=== PATIENT | female | born 1980 | race African-American/Black ===

== ENCOUNTER 2017-02-07 15:06 | Emergency (ER) | payer OTHER ==
[~2017-02-07] VITALS: Ht 152.4 cm; Wt 100.0 kg
[2017-02-07] MEDS ORDERED: ONDANSETRON 4MG ODT PO STA (16:54)
[2017-02-07 17:20] LABS: CHLORIDE 101 mEq/L (98-107)
[2017-02-07 17:24] LABS: CARBON DIOXIDE 26 mEq/L (21-32)
[2017-02-07 17:26] LABS: BASOPHILS % 0.9 % (0.0-2.0); HEMATOCRIT. 38.9 % (36.0-48.0); HEMOGLOBIN. 13.1 g/dL (12.0-16.0); LYMPHOCYTES % 29.6 % (20.0-50.0); MEAN CORPUSCULAR HEMOGLOBIN 31.1 pg (28.0-32.0); MEAN CORPUSCULAR VOLUME 92.5 fL (81.0-99.0); MEAN PLATELET VOLUME 9.1 fl (7.4-10.4); MONOCYTES % 8.3 % (2.0-8.0); NEUTROPHILS % 60.2 % (40.0-76.0); PLATELET 189 x1000/uL (130-400); RED BLOOD CELL COUNT 4.21 mill/uL (4.2-5.4); RED CELL DISTRIBUTION WIDTH 14.3 % (11.6-14.6)
[2017-02-07] MEDS ORDERED: SODIUM CHLORIDE 0.9% 1,000 ML IV ONE (17:30)
[2017-02-07 17:38] LABS: HCG SCREEN POSITIVE
[2017-02-07 18:00] LABS: CLARITY URINE CLOUDY (CLEAR); COLOR URINE YELLOW (YELLOW); GLUCOSE URINE NEGATIVE (NEGATIVE); KETONES URINE 4+ (NEGATIVE); LEUKOCYTE ESTERASE URINE TRACE (NEGATIVE); NITRITE URINE NEGATIVE (NEGATIVE); OCCULT BLOOD URINE TRACE (NEGATIVE); PROTEIN URINE TRACE (NEGATIVE)
[2017-02-07 21:41] VITALS: BP 119/71
== END 2017-02-07 22:18 | disposition home or self-care (01) ==
LOC: ER 17:14
DX: O26.891 Other specified pregnancy related conditions, first trimester (principal); R11.2 Nausea with vomiting, unspecified; O99.331 Smoking (tobacco) complicating pregnancy, first trimester; Z3A.08 8 weeks gestation of pregnancy
CPT/HCPCS: 36415; 76801; 80053; 81001; 83690; 84702; 84703; 85025; 96360; 96361; 99285; J7030; Q0162; Z7610

== ENCOUNTER 2023-10-04 22:05 | Emergency (ER) | payer OTHER ==
[~2023-10-04] VITALS: Ht 154.9 cm; Wt 91.0 kg
[2023-10-04 22:28] VITALS: BP 171/104; PULSE 82; RESP 18; TEMP 98.3; O2SAT 100
[2023-10-04] MEDS ORDERED: AMOX1TAB16 MT (23:49)
[2023-10-05] MEDS: TETANUS, DIPHTHERIA, PERTUSSIS VAC/PF 0.5ML (>10YR OLD) IM ONE
== END 2023-10-05 00:17 | disposition home or self-care (01) ==
LOC: ER 22:05
DX: S40.879A Other superficial bite of unspecified upper arm, initial encounter (principal); Z98.890 Other specified postprocedural states; Y08.89XA Assault by other specified means, initial encounter; Y93.89 Activity, other specified; Y92.89 Other specified places as the place of occurrence of the external cause; Y99.8 Other external cause status
CPT/HCPCS: 90471; 90715; 99283